=== PATIENT | male | born 1980 | race Hispanic/Latino ===

== ENCOUNTER 2024-11-15 12:10 | Day surgery (SDC) | payer OTHER ==
[~2024-11-15] VITALS: Ht 175.3 cm; Wt 121.1 kg
[~2024-11-15 12:10] MED LIST: ESOM20CA2 PO; HYDR-3490 PO; LEXA1TAB2 PO; LISI40TA10 PO; METF500T13 PO; ROSU20TA86 PO; TRAZ1TAB10 PO
[2024-11-15] MEDS ORDERED: LIDOCAINE 2% 100 MG/5 ML SDV (FOR ANES.) As Ordered ONE (13:33)
[2024-11-15 13:50] VITALS: BP 135/73; O2SAT 96
== END 2024-11-15 14:15 | disposition home or self-care (01) ==
LOC: M OPP 12:10
PROVIDERS: ATTEND Internal Medicine Gastroenterology
DX: K22.89 Other specified disease of esophagus (principal); K44.9 Diaphragmatic hernia without obstruction or gangrene; K21.00 Gastro-esophageal reflux disease with esophagitis, without bleeding; K92.0 Hematemesis; Z79.84 Long term (current) use of oral hypoglycemic drugs; Z79.899 Other long term (current) drug therapy
CPT/HCPCS: 43239; 88305; J3010